=== PATIENT | female | born 1990 | race American Indian/Alaskan Native ===

== ENCOUNTER 2021-07-07 10:56 | Outpatient (CLI) | payer MEDICAID ==
[2021-07-07 11:26] VITALS: BP 112/64
== END 2021-07-07 12:14 | disposition home or self-care (01) ==
LOC: TRG 10:56 → APU 11:00 → TRG 12:14
PROVIDERS: ATTEND Obstetrics & Gynecology
DX: O47.1 False labor at or after 37 completed weeks of gestation (principal); Z3A.37 37 weeks gestation of pregnancy
CPT/HCPCS: 59025